=== PATIENT | male | born 1990 | race Caucasian/White ===

== ENCOUNTER 2016-10-24 05:27 | Emergency (ER) | payer OTHER ==
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
[~2016-10-24 05:27] MED LIST: AUGMENTIN PO; BACITRACIN15 GM OINT PO; BACTRIM DS TABL1 TA1 PO; IBUPROFEN PO; KEFLEX500 M1 PO; KEFLEX500 MG PO; NO MEDICATIONS; PENICILLIN; PHENERGAN PO; PHENERGAN25 M1; PHENERGAN25 M1 PO; PREDNISONE PO
== END 2016-10-24 05:46 | disposition home or self-care (01) ==
LOC: SED 05:27
DX: S63.501A Unspecified sprain of right wrist, initial encounter (principal); G89.18 Other acute postprocedural pain; K08.89 Other specified disorders of teeth and supporting structures; F17.200 Nicotine dependence, unspecified, uncomplicated; X58.XXXA Exposure to other specified factors, initial encounter
CPT/HCPCS: 73110; 73130; 99283